=== PATIENT | male | born 1995 | race Two or more races ===

== ENCOUNTER 2016-07-07 15:38 | Inpatient (IN) | payer OTHER ==
--- NOTE | 2016-07-07 15:48 | EDPHY ---
H & P Stated Complaint: Suicide attempt Source: Patient, Police, EMS - Medical/Surgical History Hx Asthma: No Hx Chronic Respiratory Disease: No Hx Diabetes: No Hx Cardiac Disease: No Hx Renal Disease: No Hx Cirrhosis: No Hx Alcoholism: No Hx HIV/AIDS: No Hx Splenectomy or Spleen Trauma: No - Social History Smoking Status: Light smoker Time Seen by Provider: 07/07/16 16:01 HPI/ROS: CHIEF COMPLAINT: Suicide attempt HISTORY OF PRESENT ILLNESS: This is a 21-year-old male brought into the emergency department via EMS and police. EMS report patient was found by remains with a plastic bag over his head attempting to suffocate himself, positive LOC. Patient stated he failed out of college this semester, his parents are going to be very disappointed in him. he comes from [facility] family support system here, patient also states he has post to be on Wellbutrin and Abilify but and was unable to pay for his medications and has been off medications for several days. Patient states he thinks if he would been on his medications the situation would have been less stressful. Patient also reports that he is supposed start outpatient psychiatric counseling this month. REVIEW OF SYSTEMS: Constitutional: No fever, no chills. Eyes: No discharge. ENT: No sore throat. Cardiovascular: No chest pain, no palpitations. Respiratory: No cough, no shortness of breath. Gastrointestinal: No abdominal pain, no vomiting. Genitourinary: No hematuria. Musculoskeletal: No neck pain, back pain. Skin: No rashes. Neurological: No headache. (Marya John) - Physical Exam Exam: General Appearance: Alert, no distress. Eyes: Pupils equal and round, no petechiae no pallor or injection. ENT, Mouth: Mucous membranes moist. Respiratory: There are no retractions, lungs are clear to auscultation. Cardiovascular: Regular rate and rhythm. Gastrointestinal: Abdomen is soft and nontender, no masses, bowel sounds normal. Neurological: No focal deficits Skin: Warm and dry, no rashes. Musculoskeletal: Neck is supple nontender. Extremities: symmetrical, full range of motion. Psychiatric: Patient is oriented X 3, there is no agitation. No flat affect (Marya John) Constitutional: Initial Vital Signs Temperature (C) 36.9 C 07/07/16 15:51 Heart Rate 85 07/07/16 15:51 Respiratory Rate 18 05/08/17 15:51 Blood Pressure 160/88 H 07/07/16 15:51 O2 Sat (%) 97 07/07/16 15:51 O2 Delivery Mode Room Air Allergies/Adverse Reactions: No Known Allergies Allergy (Unverified 03/19/15 22:00) Home Medications: Medication Instructions Recorded Abilify 07/07/16 Vyvanse 07/07/16 Wellbutrin Xl 07/07/16 Medical Decision Making ED Course/Re-evaluation: Discussed the plan of care: CBC, BMP, ETOH, drug screen, psych evaluation. Patient is in agreement with this plan 1720: Patient medically cleared for mental health evaluation. Patient resting no complaints now agitation calm 1800: Spoke with Tammy with [facility], patient will be admitted (Marya John) Differential Diagnosis: Other differential diagnosis considered but not limited to cervical neck strain , AMS, psychosis (Marya John) Other Provider: The patient was accepted at [address] [place] [address] Flores[address] I have completed transfer paperwork. (Gallo Jefferson) - Data Points Laboratory Results: Laboratory Results 07/07/16 15:55 07/07/16 15:55 07/07/16 07/07/16 07/07/16 17:00 15:55 15:55 WBC 8.26 10^3/uL 10^3/uL (3.80-9.50) RBC 5.36 10^6/uL 10^6/uL (4.40-6.38) Hgb 15.7 g/dL g/dL (13.7-17.5) Hct 45.1 % % (40.0-51.0) MCV 84.1 fL fL (81.5-99.8) MCH 29.3 pg pg (27.9-34.1) MCHC 34.8 g/dL g/dL (32.4-36.7) RDW 12.7 % % (11.5-15.2) Plt Count 274 10^3/uL 10^3/uL (150-400) MPV 10.2 fL fL (8.7-11.7) Neut % (Auto) 65.1 % % (39.3-74.2) Lymph % (Auto) 25.9 % % (15.0-45.0) Merrick % (Auto) 7.6 % % (4.5-13.0) Eos % (Auto) 0.7 % % (0.6-7.6) Baso % (Auto) 0.2 % L % (0.3-1.7) Nucleat RBC Rel Count 0.0 % % (0.0-0.2) Absolute Neuts (auto) 5.37 10^3/uL 10^3/uL (1.70-6.50) Absolute Lymphs (auto) 2.14 10^3/uL 10^3/uL (1.00-3.00) Absolute Monos (auto) 0.63 10^3/uL 10^3/uL (0.30-0.80) Absolute Eos (auto) 0.06 10^3/uL 10^3/uL (0.03-0.40) Absolute Basos (auto) 0.02 10^3/uL 10^3/uL (0.02-0.10) Absolute Nucleated RBC 0.00 10^3/uL 10^3/uL (0-0.01) Immature Gran % 0.5 % % (0.0-1.1) Immature Gran # 0.04 10^3/uL 10^3/uL (0.00-0.10) Sodium 138 mEq/L mEq/L (134-144) Potassium 4.1 mEq/L mEq/L (3.5-5.2) Chloride 104 mEq/L mEq/L (97-110) Carbon Dioxide 23 mEq/l mEq/l (22-31) Anion Gap 11 mEq/L mEq/L (8-16) BUN 21 mg/dL mg/dL (7-23) Creatinine 1.0 mg/dL mg/dL (0.7-1.3) Estimated GFR > 60 Glucose 96 mg/dL mg/dL (70-100) Calcium 10.0 mg/dL mg/dL (8.5-10.4) Urine Opiates Screen NEGATIVE (NEGATIVE) Urine Barbiturates NEGATIVE (NEGATIVE) Ur Phencyclidine Scrn NEGATIVE (NEGATIVE) Ur Amphetamine Screen NEGATIVE (NEGATIVE) U Benzodiazepines Scrn NEGATIVE (NEGATIVE) Urine Cocaine Screen NEGATIVE (NEGATIVE) U Marijuana (THC) Screen NON-NEGATIVE H (NEGATIVE) Ethyl Alcohol < 10 mg/dL mg/dL (0-10) Departure - Departure Disposition: [facility] Clinical Impression: Suicide attempt by adequate means Qualifiers: Encounter type: initial encounter Qualified Code(s): X83.8XXA - Intentional self-harm by other specified means, initial encounter Condition: Good Referrals: Patient,NotPresent [Unknown] - As per Instructions
[2016-07-07 16:08] LABS: % IMMATURE GRANULYOCYTES 0.5 % (0.0-1.1); ABSOLUTE IMMATURE GRANULOCYTES 0.04 10^3/uL (0.00-0.10); ADD DIFF? NO; ADD MORPH? NO; ADD SCAN? NO; ATYPICAL LYMPHOCYTE FLAG 40 (0-99); FRAGMENT RBC FLAG 0 (0-99); HEMATOCRIT 45.1 % (40.0-51.0); HEMOGLOBIN 15.7 g/dL (13.7-17.5); LEFT SHIFT FLG 0 (0-99); LIPEMIA HEMOLYSIS FLAG 90 (0-99); MEAN CELL HEMOGLOBIN 29.3 pg (27.9-34.1); MEAN CELL HEMOGLOBIN CONCENTR. 34.8 g/dL (32.4-36.7); MEAN CELL VOLUME 84.1 fL (81.5-99.8); MEAN PLATELET VOLUME 10.2 fL (8.7-11.7); PLATELET CLUMPS FLAG 0 (0-99); PLATELET COUNT 274 10^3/uL (150-400); RED BLOOD CELL COUNT 5.36 10^6/uL (4.40-6.38); RED CELL DISTRIBUTION WIDTH 12.7 % (11.5-15.2)
[2016-07-07 16:32] LABS: ANION GAP 11 mEq/L (8-16); CARBON DIOXIDE 23 mEq/l (22-31); CHLORIDE 104 mEq/L (97-110); ETHANOL SERUM < 10 mg/dL (0-10); GLOMERULAR FILTRATION RATE > 60; GLUCOSE 96 mg/dL (70-100); POTASSIUM 4.1 mEq/L (3.5-5.2); SODIUM 138 mEq/L (134-144)
[2016-07-07] MEDS ORDERED: OLANZapine DISINTEGR 10 MG TAB PO PRN (22:12)
[2016-07-07] MEDS ORDERED: NICOTINE POLACRILEX 2 MG GUM B PRN (22:12)
[2016-07-07] MEDS ORDERED: MAG HYDROX/AL HYDROX/SIMETH 30 ML UDCUP PO PRN (22:12)
[2016-07-07] MEDS ORDERED: MAGNESIUM HYDROXIDE 30 ML UDCUP PO PRN (22:12)
[2016-07-07] MEDS ORDERED: ACETAMINOPHEN 325 MG TAB PO PRN (22:12)
[2016-07-07] MEDS: LORazepam 0.5 MG TAB PO PRN (22:38)
[2016-07-08] MEDS: buPROPion XL 150 MG TAB PO SCH (08:11)
[2016-07-08] MEDS: ARIPiprazole 5 MG TAB PO SCH (08:11)
--- NOTE | 2016-07-08 21:21 | BCON ---
[f rep st] BEHAVIORAL HEALTH CONSULTATION INTERNAL MEDICINE CONSULTATION DATE OF CONSULTATION: 07/08/2016 REFERRING PHYSICIAN: Dr. Flores REASON FOR REFERRAL: Medical clearance for inpatient behavioral health stay. HISTORY OF PRESENT ILLNESS: The patient presented to the emergency department yesterday. He had attempted suicide with attempted asphyxiation with a plastic bag over his head and he had lost consciousness. His roommates alerted the police and he was brought to the emergency department. Currently, he is without any acute complaints. PAST MEDICAL HISTORY: He denies any history of medical illnesses. PAST SURGICAL HISTORY: He has had a cosmetic procedure done on his nose. MEDICATIONS: Prior to admission, he reports that he had been noncompliant but he had been prescribed aripiprazole 5 mg p.o. daily, bupropion 150 mg p.o. daily , and lisdexamfetamine 50 mg p.o. daily. ALLERGIES: There are no known drug allergies. SOCIAL HISTORY: He has been a college student but he failed his classes this semester. He lives with roommates. He is a smoker. He uses alcohol and his toxicology screen was positive for marijuana. His family lives in [place]. FAMILY HISTORY: Noncontributory. REVIEW OF SYSTEMS: He denies cough or dyspnea. He denies neck pain or chest pain. He reports he has a bruise from playing paintball on his left thorax. Otherwise, a 10-point review of systems is negative. PHYSICAL EXAMINATION: VITAL SIGNS: Blood pressure is 126/62, heart rate is 54 , respiratory rate is 16, oxygen saturation is 97% on room air. Temperature is 36.9 degrees centigrade. His weight is 91.6 kg for a body mass index of 26.7. GENERAL: This is an overweight-appearing man who appears his chronologic age, cooperative, and in no acute distress. HEENT: Extraocular movements are intact. Pupils are equal, round, and reactive to light. Mucous membranes are moist. Dentition is in good condition. NECK: Supple. HEART: There is a regular rate and rhythm with no murmurs, rubs, or gallops. LUNGS: Clear to auscultation bilaterally. ABDOMEN: Soft, nontender, nondistended with normoactive bowel sounds. EXTREMITIES: There is no cyanosis, clubbing, or edema. Radial and dorsalis pedis pulses are 2+ bilaterally. NEUROLOGIC: He is alert and oriented x3. Cranial nerves 2 through 12 are grossly intact. There is no focal weakness. Sensation is intact to light touch. LABORATORY STUDIES: Laboratory studies drawn in the emergency department: CBC was within normal limits but for a slight relative decrement of basophils of no clinical significance. Serum chemistry revealed normal renal function and electrolytes. Toxicology screen in the serum was negative for ethyl alcohol, and the urine was non-negative for marijuana but negative for any other substances of abuse. ASSESSMENT/RECOMMENDATIONS: 1. Mental health issues. Pending further evaluation and management per Psychiatry and the mental health team. 2. Status post suicide attempt by asphyxiation. He appears to have not done himself any significant damage though he did have loss of consciousness per the emergency department report. 3. Tobacco dependence syndrome. Encouraged smoking cessation. Thank you very much for including me in the care of this patient, and please do not hesitate to contact me or the hospitalist service should there be need for further medical evaluation. I see no medical contraindications to the patient's continued stay on the inpatient behavioral health unit or to any psychiatric medications or procedures. /[id number]/MODL MTDD
[2016-07-08] MEDS: LORazepam 0.5 MG TAB PO PRN (23:33)
--- NOTE | 2016-07-09 06:55 | SOAPPROG ---
KRISTYN Progress Note Assessment/Plan: Assessment: Plan: 07/09/16 DAY ' UPDATE: Objective: Vital Signs Temp Pulse Resp BP Pulse Ox 36.5 C 88 15 122/70 H 96 07/09/16 06:00 07/09/16 06:00 07/09/16 06:00 07/09/16 06:00 07/09/16 06:00 ICD10 Worksheet Patient Problems: Problems Problem Status Onset Suicide attempt by adequate means Acute
[2016-07-09] MEDS: buPROPion XL 150 MG TAB PO SCH (07:57)
[2016-07-09] MEDS: ARIPiprazole 5 MG TAB PO SCH (07:57)
--- NOTE | 2016-07-09 11:00 | SOAPPROG ---
SOAP Progress Note Assessment/Plan: Assessment: Plan: 07/09/16 10:50 DAY UPDATE: Nursing reports over last 24 cycle pt slightly more visible in milieu and has started to attend groups, c/w cares and meds, in behavioral control, is observbly depressed. ON EXAM: pesents as calm, conversant, cooperative; openly discloses the history associated with both suicide attempt including contemplative and action planning prior to each attempt; his feeling of unworthiness were intense at time of taking action and attenpts were lethally-intended albeit not without conscious ambivalence; reports earlier success in athletics and academics in high school very important to his self-esteem and that this success was not replicated after enrolling as [employer] freshman fall despite his strivings; he agreed that these areas need more attention and planning when he returns to campus life - ? enrolling in summer school. Mood is dysphoric but less that yesterday, denies SI, understands extending inpt stay for further stabilization and to complete workup by obtaining intake data from his community clinicians and parents. ASSESSMENT/PLAN: early descriptive improvement b/w residual depressive acuity/ no current change in meds or management plan; call pending to pt's community psychiatrist Objective: Vital Signs Temp Pulse Resp BP Pulse Ox 36.5 C 88 15 122/70 H 96 07/09/16 06:00 07/09/16 06:00 07/09/16 06:00 07/09/16 06:00 07/09/16 06:00 ICD10 Worksheet Patient Problems: Problems Problem Status Onset Suicide attempt by adequate means Acute
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
[2016-07-09] MEDS: LORazepam 0.5 MG TAB PO PRN (22:16)
--- NOTE | 2016-07-10 06:11 | SOAPPROG ---
SOAP Progress Note Assessment/Plan: Assessment: Plan: 07/09/16 10:50 DAY UPDATE: Nursing reports over last 24 cycle pt slightly more visible in milieu and has started to attend groups, c/w cares and meds, in behavioral control, is observbly depressed. ON EXAM: presents as calm, conversant, cooperative; openly discloses the history associated with both suicide attempt including contemplative and action planning prior to each attempt; his feelings of unworthiness were intense at time of taking action and attempts were lethally-intended albeit not without conscious ambivalence; reports earlier success in athletics and academics in high school very important to his self-esteem and that this success was not replicated after enrolling as [employer] freshman fall despite his strivings; he agreed that these areas need more attention and planning when he returns to campus life - ? enrolling in summer school. Mood is dysphoric but less that yesterday, denies SI, understands extending inpt stay for further stabilization and to complete workup by obtaining intake data from his community clinicians and parents. ASSESSMENT/PLAN: early descriptive improvement b/w residual depressive acuity/ no current change in meds or management plan; call pending to pt's community psychiatrist 07/10/16 DAY UPDATE: Objective: Vital Signs Temp Pulse Resp BP Pulse Ox 36.5 C 88 15 122/70 H 96 07/09/16 06:00 07/09/16 06:00 07/09/16 06:00 07/09/16 06:00 07/09/16 06:00 ICD10 Worksheet Patient Problems: Problems Problem Status Onset Suicide attempt by adequate means Acute
[2016-07-10] MEDS: buPROPion XL 150 MG TAB PO SCH (08:07)
[2016-07-10] MEDS: ARIPiprazole 5 MG TAB PO SCH (08:07)
--- NOTE | 2016-07-10 10:45 | SOAPPROG ---
SOAP Progress Note Assessment/Plan: Assessment: Plan: 07/09/16 10:50 DAY ' UPDATE: Nursing reports over last 24 cycle pt slightly more visible in milieu and has started to attend groups, c/w cares and meds, in behavioral control, is observbly depressed. ON EXAM: presents as calm, conversant, cooperative; openly discloses the history associated with both suicide attempt including contemplative and action planning prior to each attempt; his feelings of unworthiness were intense at time of taking action and attempts were lethally-intended albeit not without conscious ambivalence; reports earlier success in athletics and academics in high school very important to his self-esteem and that this success was not replicated after enrolling as [employer] freshman fall despite his strivings; he agreed that these areas need more attention and planning when he returns to campus life - ? enrolling in summer school. Mood is dysphoric but less that yesterday, denies SI, understands extending inpt stay for further stabilization and to complete workup by obtaining intake data from his community clinicians and parents. ASSESSMENT/PLAN: early descriptive improvement b/w residual depressive acuity/ no current change in meds or management plan; call pending to pt's community psychiatrist 07/10/16 10:34 DAY ' UPDATE: Nursing reports over last 24 hr. pt has remained in behavioral c ontrol , c/w cares and meds, is more visible in the milieu and attending groups with participation; pt did regress in the context of family yesterday with MOC, BOC, CC, and myself. When he heard from me that his inpt stay would be extended to sufficiently stabilize hi mental status and finalize a definitive dc plan he became agitated, tearful, protesting. He did settle down after i left meeting and had a productive after- meeting visit with family members. ON EXAM: today pt presents as calm, cooperative, conversant; mood with residual dysphoria but diminished from yesterday; denies current SI; able to reflect on the meeting yesterday and f/u talk with his mother productively- better understanding of need to extend inpt stay and formulate a plan for f/u treatment and life development; discussed meds, meeting next week with his community psychotherapist and parents to update course and formulate dC planning ; also discussed how to therapeutically optimize use of inpt rx plan. ASSESSMENT/PLAN: residual syndromal depression but incrementally better today/ will review case with community psychiatrist including pharmacologic strategies ; CP focus discussed with Nursing in Rounds Objective: Vital Signs Temp Pulse Resp BP Pulse Ox 36.3 C 91 16 127/68 H 97 07/10/16 06:00 07/10/16 06:00 07/10/16 06:00 07/10/16 06:00 07/10/16 06:00 ICD10 Worksheet Patient Problems: Problems Problem Status Onset Suicide attempt by adequate means Acute
[2016-07-10] MEDS: LORazepam 0.5 MG TAB PO PRN (21:24)
--- NOTE | 2016-07-11 06:32 | SOAPPROG ---
SOAP Progress Note Assessment/Plan: Assessment: Plan: 07/09/16 10:50 DAY ' UPDATE: Nursing reports over last 24 cycle pt slightly more visible in milieu and has started to attend groups, c/w cares and meds, in behavioral control, is observbly depressed. ON EXAM: presents as calm, conversant, cooperative; openly discloses the history associated with both suicide attempt including contemplative and action planning prior to each attempt; his feelings of unworthiness were intense at time of taking action and attempts were lethally-intended albeit not without conscious ambivalence; reports earlier success in athletics and academics in high school very important to his self-esteem and that this success was not replicated after enrolling as [employer] freshman fall despite his strivings; he agreed that these areas need more attention and planning when he returns to campus life - ? enrolling in summer school. Mood is dysphoric but less that yesterday, denies SI, understands extending inpt stay for further stabilization and to complete workup by obtaining intake data from his community clinicians and parents. ASSESSMENT/PLAN: early descriptive improvement b/w residual depressive acuity/ no current change in meds or management plan; call pending to pt's community psychiatrist 07/10/16 10:34 DAY ' UPDATE: Nursing reports over last 24 hr. pt has remained in behavioral control, c/w cares and meds, is more visible in the milieu and attending groups with participation; pt did regress in the context of family yesterday with MOC, BOC, CC, and myself. When he heard from me that his inpt stay would be extended to sufficiently stabilize his mental status and finalize a definitive dc plan he became agitated, tearful, protesting. He did settle down after i left meeting and had a productive after- meeting visit with family members. ON EXAM: today pt presents as calm, cooperative, conversant; mood with residual dysphoria but diminished from yesterday; denies current SI; able to reflect on the meeting yesterday and f/u talk with his mother productively- better understanding of need to extend inpt stay and formulate a plan for f/u treatment and life development; discussed meds, meeting next week with his community psychotherapist and parents to update course and formulate DC planning ; also discussed how to therapeutically optimize use of inpt rx plan. ASSESSMENT/PLAN: residual syndromal depression but incrementally better today/ will review case with community psychiatrist including pharmacologic strategies ; CP focus discussed with Nursing in Rounds 07/11/16 DAY UPDDATE: Objective: Vital Signs Temp Pulse Resp BP Pulse Ox 36.5 C 78 16 128/59 H 96 07/11/16 06:00 07/11/16 06:00 07/11/16 06:00 07/11/16 06:00 07/11/16 06:00 ICD10 Worksheet Patient Problems: Problems Problem Status Onset Suicide attempt by adequate means Acute
[2016-07-11] MEDS: buPROPion XL 150 MG TAB PO SCH (08:50)
[2016-07-11] MEDS: ARIPiprazole 5 MG TAB PO SCH (08:51)
--- NOTE | 2016-07-11 15:30 | SOAPPROG ---
SOAP Progress Note Assessment/Plan: Assessment: Plan: 07/09/16 10:50 DAY ' UPDATE: Nursing reports over last 24 cycle pt slightly more visible in milieu and has started to attend groups, c/w cares and meds, in behavioral control, is observbly depressed. ON EXAM: presents as calm, conversant, cooperative; openly discloses the history associated with both suicide attempt including contemplative and action planning prior to each attempt; his feelings of unworthiness were intense at time of taking action and attempts were lethally-intended albeit not without conscious ambivalence; reports earlier success in athletics and academics in high school very important to his self-esteem and that this success was not replicated after enrolling as [employer] freshman fall despite his strivings; he agreed that these areas need more attention and planning when he returns to campus life - ? enrolling in summer school. Mood is dysphoric but less that yesterday, denies SI, understands extending inpt stay for further stabilization and to complete workup by obtaining intake data from his community clinicians and parents. ASSESSMENT/PLAN: early descriptive improvement b/w residual depressive acuity/ no current change in meds or management plan; call pending to pt's community psychiatrist 07/10/16 10:34 DAY ' UPDATE: Nursing reports over last 24 hr. pt has remained in behavioral control, c/w cares and meds, is more visible in the milieu and attending groups with participation; pt did regress in the context of family yesterday with MOC, BOC, CC, and myself. When he heard from me that his inpt stay would be extended to sufficiently stabilize his mental status and finalize a definitive dc plan he became agitated, tearful, protesting. He did settle down after i left meeting and had a productive after- meeting visit with family members. ON EXAM: today pt presents as calm, cooperative, conversant; mood with residual dysphoria but diminished from yesterday; denies current SI; able to reflect on the meeting yesterday and f/u talk with his mother productively- better understanding of need to extend inpt stay and formulate a plan for f/u treatment and life development; discussed meds, meeting next week with his community psychotherapist and parents to update course and formulate DC planning ; also discussed how to therapeutically optimize use of inpt rx plan. ASSESSMENT/PLAN: residual syndromal depression but incrementally better today/ will review case with community psychiatrist including pharmacologic strategies ; CP focus discussed with Nursing in Rounds 07/11/16 DAY UPDATE: Nursing reports pt sustaining improving course - diminishing residual syndromal depression, c/w cares and meds, engaging the group therapies and visible in social milieu. ON EXAM: presents as calm, cooperative, conversant; indeed is less syndromally depressed, denies SI, able to focus on thought process when emotionality becomes overwhelming - "have no control and make irrational decisions" which he contrasts with the power of thinking "reflectively - which I know how to do" and can give good examples of doing that at times in his life; endorses the possibility of learning to do that consistently and "developing confidence in myself". He reports that he and his parents are formulating a plan for him to move to [place] where other family live and where he could live for a period of time with his mother, basinhis followup rx there including finding IOP resources to use. He states this suggestion initially came from his parents and he thinks it would work for him. ASSESSMENT/PLAN: descriptively improving and building first first order insight / no current change in med or management plan; anticipate family meeting over weekend to develop DC planning with anticipated DC 07/16; reassess meds in AM Objective: Vital Signs Temp Pulse Resp BP Pulse Ox 36.5 C 78 16 128/59 H 96 07/11/16 06:00 07/11/16 06:00 07/11/16 06:00 07/11/16 06:00 07/11/16 06:00 ICD10 Worksheet Patient Problems: Problems Problem Status Onset Suicide attempt by adequate means Acute
[2016-07-12] MEDS: buPROPion XL 150 MG TAB PO SCH ×2 (08:53→12:56)
[2016-07-12] MEDS: ARIPiprazole 5 MG TAB PO SCH ×2 (08:53→21:55)
--- NOTE | 2016-07-12 12:33 | SOAPPROG ---
SOAP Progress Note Assessment/Plan: Assessment: Plan: 07/09/16 10:50 DAY ' UPDATE: Nursing reports over last 24 cycle pt slightly more visible in milieu and has started to attend groups, c/w cares and meds, in behavioral control, is observbly depressed. ON EXAM: presents as calm, conversant, cooperative; openly discloses the history associated with both suicide attempt including contemplative and action planning prior to each attempt; his feelings of unworthiness were intense at time of taking action and attempts were lethally-intended albeit not without conscious ambivalence; reports earlier success in athletics and academics in high school very important to his self-esteem and that this success was not replicated after enrolling as [employer] freshman fall despite his strivings; he agreed that these areas need more attention and planning when he returns to campus life - ? enrolling in summer school. Mood is dysphoric but less that yesterday, denies SI, understands extending inpt stay for further stabilization and to complete workup by obtaining intake data from his community clinicians and parents. ASSESSMENT/PLAN: early descriptive improvement b/w residual depressive acuity/ no current change in meds or management plan; call pending to pt's community psychiatrist 07/10/16 10:34 DAY ' UPDATE: Nursing reports over last 24 hr. pt has remained in behavioral control, c/w cares and meds, is more visible in the milieu and attending groups with participation; pt did regress in the context of family yesterday with MOC, BOC, CC, and myself. When he heard from me that his inpt stay would be extended to sufficiently stabilize his mental status and finalize a definitive dc plan he became agitated, tearful, protesting. He did settle down after i left meeting and had a productive after- meeting visit with family members. ON EXAM: today pt presents as calm, cooperative, conversant; mood with residual dysphoria but diminished from yesterday; denies current SI; able to reflect on the meeting yesterday and f/u talk with his mother productively- better understanding of need to extend inpt stay and formulate a plan for f/u treatment and life development; discussed meds, meeting next week with his community psychotherapist and parents to update course and formulate DC planning ; also discussed how to therapeutically optimize use of inpt rx plan. ASSESSMENT/PLAN: residual syndromal depression but incrementally better today/ will review case with community psychiatrist including pharmacologic strategies ; CP focus discussed with Nursing in Rounds 07/11/16 DAY ' UPDATE: Nursing reports pt sustaining improving course - diminishing residual syndromal depression, c/w cares and meds, engaging the group therapies and visible in social milieu. ON EXAM: presents as calm, cooperative, conversant; indeed is less syndromally depressed, denies SI, able to focus on thought process when emotionality becomes overwhelming - "have no control and make irrational decisions" which he contrasts with the power of thinking "reflectively - which I know how to do" and can give good examples of doing that at times in his life; endorses the possibility of learning to do that consistently and "developing confidence in myself". He reports that he and his parents are formulating a plan for him to move to [place] where other family live and where he could live for a period of time with his mother, basinhis followup rx there including finding IOP resources to use. He states this suggestion initially came from his parents and he thinks it would work for him. ASSESSMENT/PLAN: descriptively improving and building first first order insight / no current change in med or management plan; anticipate family meeting over weekend to develop DC planning with anticipated DC 07/16; reassess meds in AM Objective: Vital Signs Temp Pulse Resp BP Pulse Ox 36.3 C 77 15 126/72 H 97 07/12/16 06:00 07/12/16 06:00 07/12/16 06:00 07/12/16 06:00 07/12/16 06:00 ICD10 Worksheet Patient Problems: Problems Problem Status Onset Suicide attempt by adequate means Acute
--- NOTE | 2016-07-12 12:40 | SOAPPROG ---
SOAP Progress Note Assessment/Plan: Assessment: Plan: 07/09/16 10:50 DAY ' UPDATE: Nursing reports over last 24 cycle pt slightly more visible in milieu and has started to attend groups, c/w cares and meds, in behavioral control, is observbly depressed. ON EXAM: presents as calm, conversant, cooperative; openly discloses the history associated with both suicide attempt including contemplative and action planning prior to each attempt; his feelings of unworthiness were intense at time of taking action and attempts were lethally-intended albeit not without conscious ambivalence; reports earlier success in athletics and academics in high school very important to his self-esteem and that this success was not replicated after enrolling as [employer] freshman fall despite his strivings; he agreed that these areas need more attention and planning when he returns to campus life - ? enrolling in summer school. Mood is dysphoric but less that yesterday, denies SI, understands extending inpt stay for further stabilization and to complete workup by obtaining intake data from his community clinicians and parents. ASSESSMENT/PLAN: early descriptive improvement b/w residual depressive acuity/ no current change in meds or management plan; call pending to pt's community psychiatrist 07/10/16 10:34 DAY ' UPDATE: Nursing reports over last 24 hr. pt has remained in behavioral control, c/w cares and meds, is more visible in the milieu and attending groups with participation; pt did regress in the context of family yesterday with MOC, BOC, CC, and myself. When he heard from me that his inpt stay would be extended to sufficiently stabilize his mental status and finalize a definitive dc plan he became agitated, tearful, protesting. He did settle down after i left meeting and had a productive after- meeting visit with family members. ON EXAM: today pt presents as calm, cooperative, conversant; mood with residual dysphoria but diminished from yesterday; denies current SI; able to reflect on the meeting yesterday and f/u talk with his mother productively- better understanding of need to extend inpt stay and formulate a plan for f/u treatment and life development; discussed meds, meeting next week with his community psychotherapist and parents to update course and formulate DC planning ; also discussed how to therapeutically optimize use of inpt rx plan. ASSESSMENT/PLAN: residual syndromal depression but incrementally better today/ will review case with community psychiatrist including pharmacologic strategies ; CP focus discussed with Nursing in Rounds 07/11/16 UPDATE: Nursing reports pt sustaining improving course - diminishing residual syndromal depression, c/w cares and meds, engaging the group therapies and visible in social milieu. ON EXAM: presents as calm, cooperative, conversant; indeed is less syndromally depressed, denies SI, able to focus on thought process when emotionality becomes overwhelming - "have no control and make irrational decisions" which he contrasts with the power of thinking "reflectively - which I know how to do" and can give good examples of doing that at times in his life; endorses the possibility of learning to do that consistently and "developing confidence in myself". He reports that he and his parents are formulating a plan for him to move to [place] where other family live and where he could live for a period of time with his mother, basinhis followup rx there including finding IOP resources to use. He states this suggestion initially came from his parents and he thinks it would work for him. ASSESSMENT/PLAN: descriptively improving and building first first order insight / no current change in med or management plan; anticipate family meeting over weekend to develop DC planning with anticipated DC 07/16; reassess meds in AM 07/12/16 12:33 DAY UPDATE/EXAM: Nursing reports pt sustaining stability and improving course over last 24 hours - c/w cares and meds, engaging social milieu and groups with active participation; on direct exam is calm and conversant, denies current SI and speaks of need for IOP structure and focus on gaining skill to regulate emotiona environment and build self-esteem; able to speak about the value of disclosure to his father; meds reviewed with changes as referenced. ASSESSMENT/PLAN: improving course with early first order insight emerging/ increase Bupropion XL to 150 mg bid and updose Abilify to 5 mg bid; no change in mangement plan as d/w Nursing in Rounds Objective: Vital Signs Temp Pulse Resp BP Pulse Ox 36.3 C 77 15 126/72 H 97 07/12/16 06:00 07/12/16 06:00 07/12/16 06:00 07/12/16 06:00 07/12/16 06:00 ICD10 Worksheet Patient Problems: Problems Problem Status Onset Suicide attempt by adequate means Acute
[2016-07-12] MEDS ORDERED: buPROPion XL 150 MG TAB PO SCH (12:45)
[2016-07-12] MEDS: LORazepam 0.5 MG TAB PO PRN (22:39)
[2016-07-13] MEDS: ARIPiprazole 5 MG TAB PO SCH ×2 (09:33→22:13)
[2016-07-13] MEDS: buPROPion XL 150 MG TAB PO SCH ×2 (09:33→12:09)
[2016-07-13] MEDS: LORazepam 0.5 MG TAB PO PRN (22:13)
[2016-07-14 06:14] VITALS: RESP 16
[2016-07-14] MEDS: ARIPiprazole 5 MG TAB PO SCH ×2 (08:00→20:38)
[2016-07-14] MEDS: buPROPion XL 150 MG TAB PO SCH ×2 (08:00→13:43)
[2016-07-14] MEDS: LORazepam 0.5 MG TAB PO PRN (20:38)
[2016-07-15 06:36] VITALS: BP 130/61; PULSE 73; TEMP 98.4; O2SAT 96
--- NOTE | 2016-07-15 06:55 | SOAPPROG ---
SOAP Progress Note Assessment/Plan: Assessment: Plan: 07/09/16 10:50 DAY ' UPDATE: Nursing reports over last 24 cycle pt slightly more visible in milieu and has started to attend groups, c/w cares and meds, in behavioral control, is observbly depressed. ON EXAM: presents as calm, conversant, cooperative; openly discloses the history associated with both suicide attempt including contemplative and action planning prior to each attempt; his feelings of unworthiness were intense at time of taking action and attempts were lethally-intended albeit not without conscious ambivalence; reports earlier success in athletics and academics in high school very important to his self-esteem and that this success was not replicated after enrolling as [employer] freshman fall despite his strivings; he agreed that these areas need more attention and planning when he returns to campus life - ? enrolling in summer school. Mood is dysphoric but less that yesterday, denies SI, understands extending inpt stay for further stabilization and to complete workup by obtaining intake data from his community clinicians and parents. ASSESSMENT/PLAN: early descriptive improvement b/w residual depressive acuity/ no current change in meds or management plan; call pending to pt's community psychiatrist 07/10/16 10:34 DAY ' UPDATE: Nursing reports over last 24 hr. pt has remained in behavioral control, c/w cares and meds, is more visible in the milieu and attending groups with participation; pt did regress in the context of family yesterday with MOC, BOC, CC, and myself. When he heard from me that his inpt stay would be extended to sufficiently stabilize his mental status and finalize a definitive dc plan he became agitated, tearful, protesting. He did settle down after i left meeting and had a productive after- meeting visit with family members. ON EXAM: today pt presents as calm, cooperative, conversant; mood with residual dysphoria but diminished from yesterday; denies current SI; able to reflect on the meeting yesterday and f/u talk with his mother productively- better understanding of need to extend inpt stay and formulate a plan for f/u treatment and life development; discussed meds, meeting next week with his community psychotherapist and parents to update course and formulate DC planning ; also discussed how to therapeutically optimize use of inpt rx plan. ASSESSMENT/PLAN: residual syndromal depression but incrementally better today/ will review case with community psychiatrist including pharmacologic strategies ; CP focus discussed with Nursing in Rounds 07/11/16 DAY UPDATE: Nursing reports pt sustaining improving course - diminishing residual syndromal depression, c/w cares and meds, engaging the group therapies and visible in social milieu. ON EXAM: presents as calm, cooperative, conversant; indeed is less syndromally depressed, denies SI, able to focus on thought process when emotionality becomes overwhelming - "have no control and make irrational decisions" which he contrasts with the power of thinking "reflectively - which I know how to do" and can give good examples of doing that at times in his life; endorses the possibility of learning to do that consistently and "developing confidence in myself". He reports that he and his parents are formulating a plan for him to move to [place] where other family live and where he could live for a period of time with his mother, basinhis followup rx there including finding IOP resources to use. He states this suggestion initially came from his parents and he thinks it would work for him. ASSESSMENT/PLAN: descriptively improving and building first first order insight / no current change in med or management plan; anticipate family meeting over weekend to develop DC planning with anticipated DC 07/16; reassess meds in AM 07/12/16 12:33 DAY UPDATE/EXAM: Nursing reports pt sustaining stability and improving course over last 24 hours - c/w cares and meds, engaging social milieu and groups with active participation; on direct exam is calm and conversant, denies current SI and speaks of need for IOP structure and focus on gaining skill to regulate emotional environment and build self-esteem; able to speak about the value of disclosure to his father; meds reviewed with changes as referenced. ASSESSMENT/PLAN: improving course with early first order insight emerging/ increase Bupropion XL to 150 mg bid and updose Abilify to 5 mg bid; no change in management plan as d/w Nursing in Rounds 07/13/16 14:00 DAY UPDATE: Nursing reports pt sustaining improving course - lessening syndromal depression, increased visibility in milieu, attending groups, c/w cares and meds ; frequent supportive family visits ON EXAM: presents as calm and conversant; focus on syndromal update, DC planning , experience with disclosing to father about his depressive sx over the past years a/w his sense of failing and hesitancy to let parents know; he describes his relief in being able to talk to father more directly and his awareness of father;s difficulty understanding him; meds reviewed and tolerating increased dosings effectively ASSESSMENT/PLAN: descriptivley improving; incremental insight a/w shame and self -containment/ no change in meds or management plan 07/14/16 13:15 DAY ' UPDATE/EXAM: Nursing reports over 24 hr cycle that pt has sustained progress in resolving residual syndromal depressive sx; continues to engage the unit commulnity in socially effective manner including attending groups with good participation, is playing [employer] with obvious skill/ on exam he describes the challenge in talking with father whom he continues to see as a powerful and controlling authority - referencing the experience of the family meeting with myself and father yesterday pm after our individual session; he states his preference to live in [place] rather than [place] where he feels there are more opportunities for him - work with his uncle, attend school, integrate his psychiatric treatment; continues to be interested in the [facility] structure for followup and is looking forward to DC planning meeting with family tomorrow at 0800 ASSESSMENT/PLAN: improving course sustained; first order insight emerging; preparing for DC/ no change in meds or CP as d/w Nursing in Rounds; DC tomorrow in PM; Dc planning meeting in AM with family Objective: Vital Signs Temp Pulse Resp BP Pulse Ox 36.9 C 73 16 130/61 H 96 07/15/16 06:00 07/15/16 06:00 07/15/16 06:00 07/15/16 06:00 07/15/16 06:00 ICD10 Worksheet Patient Problems: Problems Problem Status Onset Suicide attempt by adequate means Acute
[2016-07-15] MEDS ORDERED: buPROPion XL 150 MG TAB PO SCH (09:00)
[2016-07-15] MEDS: ARIPiprazole 5 MG TAB PO SCH (09:52)
--- NOTE | 2016-07-15 12:20 | SOAPPROG ---
SOAP Progress Note Assessment/Plan: Assessment: Plan: 07/09/16 10:50 DAY ' UPDATE: Nursing reports over last 24 cycle pt slightly more visible in milieu and has started to attend groups, c/w cares and meds, in behavioral control, is observbly depressed. ON EXAM: presents as calm, conversant, cooperative; openly discloses the history associated with both suicide attempt including contemplative and action planning prior to each attempt; his feelings of unworthiness were intense at time of taking action and attempts were lethally-intended albeit not without conscious ambivalence; reports earlier success in athletics and academics in high school very important to his self-esteem and that this success was not replicated after enrolling as [employer] freshman fall despite his strivings; he agreed that these areas need more attention and planning when he returns to campus life - ? enrolling in summer school. Mood is dysphoric but less that yesterday, denies SI, understands extending inpt stay for further stabilization and to complete workup by obtaining intake data from his community clinicians and parents. ASSESSMENT/PLAN: early descriptive improvement b/w residual depressive acuity/ no current change in meds or management plan; call pending to pt's community psychiatrist 07/10/16 10:34 DAY ' UPDATE: Nursing reports over last 24 hr. pt has remained in behavioral control, c/w cares and meds, is more visible in the milieu and attending groups with participation; pt did regress in the context of family yesterday with MOC, BOC, CC, and myself. When he heard from me that his inpt stay would be extended to sufficiently stabilize his mental status and finalize a definitive dc plan he became agitated, tearful, protesting. He did settle down after i left meeting and had a productive after- meeting visit with family members. ON EXAM: today pt presents as calm, cooperative, conversant; mood with residual dysphoria but diminished from yesterday; denies current SI; able to reflect on the meeting yesterday and f/u talk with his mother productively- better understanding of need to extend inpt stay and formulate a plan for f/u treatment and life development; discussed meds, meeting next week with his community psychotherapist and parents to update course and formulate DC planning ; also discussed how to therapeutically optimize use of inpt rx plan. ASSESSMENT/PLAN: residual syndromal depression but incrementally better today/ will review case with community psychiatrist including pharmacologic strategies ; CP focus discussed with Nursing in Rounds 07/11/16 DAY UPDATE: Nursing reports pt sustaining improving course - diminishing residual syndromal depression, c/w cares and meds, engaging the group therapies and visible in social milieu. ON EXAM: presents as calm, cooperative, conversant; indeed is less syndromally depressed, denies SI, able to focus on thought process when emotionality becomes overwhelming - "have no control and make irrational decisions" which he contrasts with the power of thinking "reflectively - which I know how to do" and can give good examples of doing that at times in his life; endorses the possibility of learning to do that consistently and "developing confidence in myself". He reports that he and his parents are formulating a plan for him to move to [place] where other family live and where he could live for a period of time with his mother, basinhis followup rx there including finding IOP resources to use. He states this suggestion initially came from his parents and he thinks it would work for him. ASSESSMENT/PLAN: descriptively improving and building first first order insight / no current change in med or management plan; anticipate family meeting over weekend to develop DC planning with anticipated DC 07/16; reassess meds in AM 07/12/16 12:33 DAY UPDATE/EXAM: Nursing reports pt sustaining stability and improving course over last 24 hours - c/w cares and meds, engaging social milieu and groups with active participation; on direct exam is calm and conversant, denies current SI and speaks of need for IOP structure and focus on gaining skill to regulate emotional environment and build self-esteem; able to speak about the value of disclosure to his father; meds reviewed with changes as referenced. ASSESSMENT/PLAN: improving course with early first order insight emerging/ increase Bupropion XL to 150 mg bid and updose Abilify to 5 mg bid; no change in management plan as d/w Nursing in Rounds 07/13/16 14:00 DAY UPDATE: Nursing reports pt sustaining improving course - lessening syndromal depression, increased visibility in milieu, attending groups, c/w cares and meds ; frequent supportive family visits ON EXAM: presents as calm and conversant; focus on syndromal update, DC planning , experience with disclosing to father about his depressive sx over the past years a/w his sense of failing and hesitancy to let parents know; he describes his relief in being able to talk to father more directly and his awareness of father;s difficulty understanding him; meds reviewed and tolerating increased dosings effectively ASSESSMENT/PLAN: descriptivley improving; incremental insight a/w shame and self -containment/ no change in meds or management plan 07/14/16 13:15 DAY UPDATE/EXAM: Nursing reports over 24 hr cycle that pt has sustained progress in resolving residual syndromal depressive sx; continues to engage the unit commulnity in socially effective manner including attending groups with good participation, is playing [place] with obvious skill/ on exam he describes the challenge in talking with father whom he continues to see as a powerful and controlling authority - referencing the experience of the family meeting with myself and father yesterday pm after our individual session; he states his preference to live in [place] rather than [place] where he feels there are more opportunities for him - work with his uncle, attend school, integrate his psychiatric treatment; continues to be interested in the IOP structure for followup and is looking forward to DC planning meeting with family tomorrow at 0800 ASSESSMENT/PLAN: improving course sustained; first order insight emerging; preparing for DC/ no change in meds or CP as d/w Nursing in Rounds; DC tomorrow in PM; Dc planning meeting in AM with family 07/15/16 12:11 Brief Discharge Note DAY UPDATE/EXAM: Nursing reports pt has sustained improving course past 24 cycle; pt seen in family meeting this AM to course review and discussion of DC planning ; pt seen second time in individual session; presents as affectively stable mood neutral; continues with self-reflection about his depressed self-image and goals post dc a/w entering IOP which he and parents endorse as being in [place] where he will live with mother and be proximal to other family members; safety plan discussed and meds reviewed; he is sufficiently stable and safe for DC. ASSESSMENT/PLAN: to be dc'd today will discharge to stay with family for few days in [place] and then travel to [facility] to l wang with family and enter IOP rx program meds as referenced- given 30 day prescriptions @ DC see Discharge Summary 07/15/16 12:20 Medications Generic Name Dose Route Start Last Admin Trade Name Fiorella PRN Reason Stop Dose Admin Aripiprazole 5 mg 07/12/16 21:00 07/15/16 09:52 Abilify PO 01/08/17 20:59 5 mg BID COLLETTE Bupropion HCl 300 mg 07/15/16 09:00 07/15/16 09:52 Wellbutrin Xl PO 01/11/17 08:59 300 mg DAILY COLLETTE Vyvanse 30 mg qd Objective: Vital Signs Temp Pulse Resp BP Pulse Ox 36.9 C 73 16 130/61 H 96 07/15/16 06:00 07/15/16 06:00 07/15/16 06:00 07/15/16 06:00 07/15/16 06:00 ICD10 Worksheet Patient Problems: Problems Problem Status Onset Suicide attempt by adequate means Acute
== END 2016-07-15 13:22 | disposition home or self-care (01) | DRG 881 ==
LOC: EDUNIT# → BBEH 21:38
PROVIDERS: ADMIT Psychiatry & Neurology Psychiatry; ATTEND Psychiatry & Neurology Psychiatry
DX: F43.21 Adjustment disorder with depressed mood (principal); X83.8XXA Intentional self-harm by other specified means, initial encounter
CPT/HCPCS: 80305; G0480